=== PATIENT | female | born 1990 | race Asian ===

== ENCOUNTER 2018-11-26 11:15 | Emergency (ER) | payer OTHER ==
[~2018-11-26] VITALS: Wt 61.4 kg
[2018-11-26 11:18] VITALS: BP 115/68; PULSE 60; RESP 20; Wt 61.4 kg
[2018-11-26] MEDS ORDERED: ONDANSETRON (ODT) 4 MG TAB ODT STA (11:54)
== END 2018-11-26 13:22 | disposition home or self-care (01) ==
LOC: E/R 11:15
DX: F10.920 Alcohol use, unspecified with intoxication, uncomplicated (principal)
CPT/HCPCS: Z7502; Z7610; 99283